=== PATIENT | female | born 1975 | race Caucasian/White ===

== ENCOUNTER 2024-10-11 09:42 | Emergency (ER) | payer OTHER, MEDICARE ==
[2024-10-11] MEDS ORDERED: Sodium Chloride 0.9% 10 ML Syringe FLUSH PRN (09:59)
[2024-10-11] MEDS: Sodium Chloride 0.9% 1,000 ML IV SCH (10:28)
[2024-10-11 10:35] LABS: HEMATOCRIT 42.3 % (37.0-47.0); HEMOGLOBIN 14.7 g/dL (11.5-16.5); MEAN CORPUSCULAR HEMOGLOBIN 32.1 pg (27.0-32.0); MEAN CORPUSCULAR HGB CONC 34.8 g/dL (31.0-35.0); MEAN PLATELET VOLUME 9.8 fL (6.0-10.0); RED BLOOD CELL COUNT 4.58 M/uL (3.80-5.80); RED CELL DISTRIBUTION WIDTH 15.1 % (11.0-16.0); WHITE BLOOD CELL COUNT,WBC 7.5 K/uL (4.0-11.0)
[2024-10-11 10:51] LABS: A/G RATIO 1.3 (0.8-2.0); ALBUMIN 4.1 g/dL (3.4-5.0); ANION GAP 17.5 mmol/L (5.0-15.0); BILIRUBIN TOTAL 0.8 mg/dL (0.0-1.0); BUN/CREATININE RATIO 6.3 (6-25); CARBON DIOXIDE,CO2 26.4 mmol/L (21.0-32.0); CREATININE 0.63 mg/dL (0.55-1.02); EST CRCL DRUG DOSING (CG) 92.25 mL/min; POTASSIUM,K 3.9 mmol/L (3.5-5.1); PROTEIN TOTAL,TP 7.2 g/dL (6.4-8.2)
[2024-10-11 11:03] LABS: MAGNESIUM 1.9 mg/dL (1.8-2.4); TSH ULTRASENSITIVE 0.073 uIU/mL (0.358-3.740)
[2024-10-11 11:42] LABS: AMPHETAMINES SCREEN, URINE NEGATIVE (NEGATIVE); APPEARANCE,URINE CLEAR (CLEAR); BARBITURATE SCREEN,URINE NEGATIVE (NEGATIVE); BENZODIAZEPINES SCREEN,URINE NEGATIVE (NEGATIVE); BILIRUBIN,URINE NEGATIVE (NEGATIVE); COLOR,URINE YELLOW; GLUCOSE,URINE NEGATIVE (NEGATIVE); KETONES,URINE NEGATIVE (NEGATIVE); LEUKOCYTE ESTERASE,URINE NEGATIVE (NEGATIVE); METHADONE SCREEN, URINE NEGATIVE (NEGATIVE); METHAMPHETAMINES SCREEN, URINE NEGATIVE (NEGATIVE); NITRITE,URINE NEGATIVE (NEGATIVE); OCCULT BLOOD,URINE NEGATIVE (NEGATIVE); OXYCODONE SCREEN,URINE NEGATIVE (NEGATIVE); PROTEIN,URINE NEGATIVE (NEGATIVE); THC SCREEN,URINE 50 NG/ML POSITIVE (NEGATIVE); UROBILINOGEN,URINE 0.2 E.U./dL (0.2-1.0)
[2024-10-11] MEDS: LORazepam 2 MG/ML SDV IVPUSH ONE ×2 (13:30→14:43)
[2024-10-11] MEDS ORDERED: Diazepam 5 MG Tab ONE (14:00)
[2024-10-11] MEDS ORDERED: Gabapentin 300 MG Cap ONE (14:00)
[2024-10-11] MEDS: LORazepam 2 MG/ML SDV ONE (14:42)
[2024-10-11] MEDS: Diazepam 5 MG Tab ONE (15:13)
[2024-10-11] MEDS: Gabapentin 300 MG Cap ONE (15:13)
== END 2024-10-11 15:07 ==
LOC: LB.ED 09:42
DX: F10.130 Alcohol abuse with withdrawal, uncomplicated (principal); Z79.1 Long term (current) use of non-steroidal anti-inflammatories (NSAID); Z79.899 Other long term (current) drug therapy
CPT/HCPCS: 36415; 80053; 80307; 81003; 83735; 84443; 85027; 96361; 96374; 96375; 96376; 99285-25; A9270-GY; J2060; J3360; J7030; U0002

== ENCOUNTER 2025-05-29 15:31 | Emergency (ER) | payer MEDICARE, OTHER ==
[2025-05-29] MEDS ORDERED: Amoxicillin/Clavulanate K 875-125 MG Tab ONE (16:00)
== END 2025-05-29 16:18 | disposition home or self-care (01) ==
LOC: LB.ED 15:31
DX: L03.113 Cellulitis of right upper limb (principal); F17.210 Nicotine dependence, cigarettes, uncomplicated; Z91.018 Allergy to other foods; Z91.09 Other allergy status, other than to drugs and biological substances; Z79.899 Other long term (current) drug therapy
CPT/HCPCS: 99283; A9270-GY

== ENCOUNTER 2025-08-03 18:00 | Emergency (ER) | payer OTHER, MEDICARE ==
[2025-08-03] MEDS: Orphenadrine 60 MG/2 ML Inj IM ONE (18:45)
[2025-08-03] MEDS: methylPREDNISolone Sodium Succinate 40 MG/1 ML SDV IM ONE (18:45)
== END 2025-08-03 19:45 | disposition home or self-care (01) ==
LOC: LB.ED 18:00
DX: R07.89 Other chest pain (principal); Z79.899 Other long term (current) drug therapy; Z79.1 Long term (current) use of non-steroidal anti-inflammatories (NSAID); Z88.8 Allergy status to other drugs, medicaments and biological substances; Z91.09 Other allergy status, other than to drugs and biological substances
CPT/HCPCS: 71101; 96372; 99283; J2360; J2919

== ENCOUNTER 2025-08-15 13:07 | Emergency (ER) | payer OTHER, MEDICARE ==
[2025-08-15] MEDS: LORazepam 2 MG/ML SDV IVPUSH ONE ×2 (13:07→13:12)
[2025-08-15 13:18] LABS: BASOPHILS ABSOLUTE AUTO 0.06 K/uL (0.02-0.10); BASOPHILS PERCENT AUTO 0.6 % (0.0-0.5); EOSINOPHILS ABSOLUTE AUTO 0.47 K/uL (0.04-0.40); EOSINOPHILS PERCENT AUTO 4.7 % (1.0-5.0); LYMPHOCYTES ABSOLUTE AUTO 3.52 K/uL (1.50-4.00); LYMPHOCYTES PERCENT AUTO 35.5 % (20.0-40.0); MEAN PLATELET VOLUME 8.9 fL (6.0-10.0); MONOCYTES ABSOLUTE AUTO 0.92 K/uL (0.20-0.80); MONOCYTES PERCENT AUTO 9.3 % (3.0-10.0); NEUTROPHILS ABSOLUTE AUTO 4.95 K/uL (2.00-7.50); NEUTROPHILS PERCENT AUTO 49.9 % (45.0-70.0); PLATELET COUNT,PLT 379 K/uL (150-500); RED BLOOD CELL COUNT 4.27 M/uL (3.80-5.80); RED CELL DISTRIBUTION WIDTH 13.9 % (11.0-16.0); WHITE BLOOD CELL COUNT,WBC 9.9 K/uL (4.0-11.0)
[2025-08-15 13:32] LABS: A/G RATIO 1.1 (0.8-2.0); ALANINE AMINOTRANSFERASE,ALT 37.0 U/L (12-78); ASPARTATE AMNIOTRANSFERASE,AST 26.0 U/L (15-37); BILIRUBIN TOTAL 0.2 mg/dL (0.0-1.0); CARBON DIOXIDE,CO2 21.1 mmol/L (21.0-32.0); CHLORIDE,CL 109.0 mmol/L (98-107); CREATININE 0.99 mg/dL (0.55-1.02); EST CRCL DRUG DOSING (CG) 58.05 mL/min; ESTIMATED GFR 69.0 mL/min (>60); GLUCOSE RANDOM 120.0 mg/dL (74-100); POTASSIUM,K 3.6 mmol/L (3.5-5.1); PROTEIN TOTAL,TP 6.8 g/dL (6.4-8.2); SODIUM,NA 144.0 mmol/L (136-145)
[2025-08-15 13:51] LABS: BLOOD UREA NITROGEN,BUN 6.0 mg/dL (8-26)
[2025-08-15] MEDS: Diphtheria,Pertussis(Acell),Tetanus Vaccine 0.5 ML Syringe IM ONE (14:15)
== END 2025-08-15 14:48 ==
LOC: LB.ED 13:07
DX: S21.112A Laceration without foreign body of left front wall of thorax without penetration into thoracic cavity, initial encounter (principal); S21.111A Laceration without foreign body of right front wall of thorax without penetration into thoracic cavity, initial encounter; J45.909 Unspecified asthma, uncomplicated; Z91.018 Allergy to other foods; Z91.09 Other allergy status, other than to drugs and biological substances; Z79.51 Long term (current) use of inhaled steroids; Y28.9XXA Contact with unspecified sharp object, undetermined intent, initial encounter
CPT/HCPCS: 36415; 51702; 71045; 80053; 80307; 84703; 85025; 86850; 86900; 86901; 90471; 90715; 96365; 96375; 99285-25; A0425; A0429; J0690; J2060; J7030